=== PATIENT | female | born 1995 | race African-American/Black ===

== ENCOUNTER 2017-02-23 00:31 | Emergency (ER) | payer OTHER ==
[~2017-02-23] VITALS: Ht 170.2 cm; Wt 79.6 kg
[2017-02-23 00:38] VITALS: TEMP 36.6; Ht 170.2 cm; Wt 79.6 kg
[2017-02-23] MEDS ORDERED: ACETAMINOPHEN 500 MG TAB PO STA (01:17)
[2017-02-23] MEDS ORDERED: IBUPROFEN 600 MG TAB PO STA (01:17)
[2017-02-23 03:25] VITALS: BP 127/68; PULSE 58; O2SAT 100
--- NOTE | 2017-02-23 06:19 | EMERGENCY ROOM VISIT NOTE ---
ED Visit Note First contact with patient: 01:04 CHIEF COMPLAINT: knee pain HISTORY OF PRESENT ILLNESS: This 21-year-old female patient presents to the emergency department after sustaining an injury to the right knee after falling off his skateboard earlier this afternoon. The patient denies any other injuries besides their knee. The patient is without swelling or bruising. There is pain medially. They rate the pain as dull and 7/10. The patient states they are not comfortably to walk on it. No numbness or tingling. No previous injuries to this knee. No ankle, foot or hip pain. REVIEW OF SYSTEMS: A 6 system review of systems was completed with positives and pertinent negatives listed in the HPI. ALLERGIES: No known allergies MEDICATIONS: No chronic medication PMH: Otherwise healthy SOCIAL HISTORY: Lives in [place] PHYSICAL EXAM: Vital Signs: Reviewed Nurse's notes, vital signs stable. GENERAL : Black female, no acute distress, but appears in pain, well-developed, well- nourished. MENTAL STATUS: Alert, oriented to person place and time, and cooperative. MUSCULOSKELETAL: The right knee is not swollen. There is no ecchymosis. There is no joint effusion present. The patient is tender medially. There is medial joint line tenderness. The patella does not subluxate. Range of motion is not limited. Strength of the quads and hamstrings is 5/5. Ghazala's is negative. Ryan's and Anterior Drawer tests are negative. There is no laxity with varus and valgus stressing. The foot and toes are warm and well-perfused. Dorsalis pedis pulse 2+. Sensation to pain and light touch is intact. Capillary refill less than 2 seconds. EMERGENCY DEPARTMENT COURSE: Physical exam and history were performed. Nursing notes and EMR were reviewed. The patient appears to have right knee pain after injuring herself earlier this afternoon. X-ray was obtained and does not appear to show acute fracture dislocation per my interpretation with radiology reading pending. The patient lives in [place] and is requesting to leave the department. The patient will be placed in a knee immobilizer and given crutches. She should follow with orthopedics back home but was otherwise invited back to the ER with any new, worsening, or concerning symptoms. Current/Historical Medications No Active Prescriptions or Reported Meds Allergies Coded Allergies: No Known Allergies (Unverified , 02/23/17) Vital Signs Date Time Temp Pulse Resp B/P Pulse Ox O2 Delivery O2 Flow Rate FiO2 02/23/17 03:25 58 16 127/68 100 Room Air 02/23/17 00:38 36.6 85 16 114/72 99 Room Air Medications Administered Medications (Trade) Dose Ordered Sig/Maral Route Start Time Stop Time Status Last Admin Dose Admin Acetaminophen (Tylenol Tab) 1,000 mg NOW STAT PO 02/23/17 01:17 02/23/17 01:18 DC 02/23/17 01:32 1,000 MG Ibuprofen (Motrin Tab) 600 mg NOW STAT PO 02/23/17 01:17 02/23/17 01:18 DC 02/23/17 01:32 600 MG Departure Information Impression Primary Impression: Injury of right knee Dispostion Home / Self-Care Condition GOOD Prescriptions No Active Prescriptions or Reported Meds Forms HOME CARE DOCUMENTATION FORM, IMPORTANT VISIT INFORMATION Patient Instructions My [facility] Additional Instructions You were seen and evaluated today on an emergency basis only. This is not a substitute for, or an effort to provide, complete comprehensive medical care. It is not possible to recognize and treat all injuries or illnesses in a single emergency department visit. For this reason it is recommended that you followup with your primary care physician or orthopedist next week for ongoing care and evaluation. For baseline pain relief you may alternate ibuprofen and acetaminophen every 4 hours for pain control. Take 600 mg ibuprofen (Advil) and then 4 hours later take 1000 mg acetaminophen (Tylenol). Do not take more than 3000 mg acetaminophen in a single day. Use your knee immobilizer and crutches until otherwise instructed by your primary care physician or orthopedist. You are welcome to return to the emergency department anytime with new, worsening, or concerning symptoms.
--- NOTE | 2017-02-23 07:36 | DIAGNOSTIC IMAGING REPORT ---
RIGHT KNEE 3 VIEWS CLINICAL HISTORY: Right knee pain following injury. COMPARISON: None FINDINGS: Alignment of the right knee is anatomic. There is no acute fracture or osseous lesion. Joint spaces are preserved. There is no significant joint effusion. IMPRESSION: No significant abnormality of the right knee. Electronically signed by: Edward Douglas M.D. 02/23/2017 7:35 AM Dictated Date/Time: 02/23/2017 7:34 AM
== END 2017-02-23 03:25 | disposition home or self-care (01) ==
LOC: C.EDB 00:33
DX: S89.91XA Unspecified injury of right lower leg, initial encounter (principal); V00.138A Other skateboard accident, initial encounter; Y93.51 Activity, roller skating (inline) and skateboarding